=== PATIENT | male | born 1935 | race Caucasian/White ===

== ENCOUNTER 2021-03-21 01:44 | Inpatient (IN) ==
[2021-03-21] MEDS ORDERED: *HR* Heparin 5,000 UNIT/ML VIAL IVP PRN ×2 (04:27)
[2021-03-21] MEDS ORDERED: *HR* Heparin 5,000 UNIT/ML VIAL IVP ONE (04:27)
[2021-03-21] MEDS ORDERED: Heparin 25,000UNIT/250ML 1/2NS 25,000 UNIT/250 ML IV.SOLN IVC SCH (04:30)
[2021-03-21] MEDS ORDERED: Perflutren Lipid Microsphere 1.3 ML in 0.9 % Sodium Chloride 8.7 ML IVP PRN (04:31)
[2021-03-21] MEDS ORDERED: Ondansetron 4 MG/2 ML VIAL IVP PRN (05:26)
[2021-03-21] MEDS ORDERED: Naloxone 0.4 MG/ML INJ IVP PRN (05:26)
[2021-03-21 05:58] LABS: Basophils % 0.3 %; Red Cell Distribution Width 14.6 % (11.5-14.5)
[2021-03-21 06:00] LABS: Basophils # 0.1 K/mcL (0.0-0.2); Hemoglobin 12.6 g/dL (12.9-16.9); Immature Granulocytes % 2.6 % (0-4); Lymphocytes # 0.9 K/mcL (0.6-4.6); Lymphocytes % 3.1 %; Mean Corpuscular HGB Conc 33.2 g/dL (31.6-35.5); Mean Corpuscular Hemoglobin 30.6 pg (28.0-33.3); Mean Corpuscular Volume 92.2 fL (83.0-100.0); Mean Platelet Volume 9.8 fL (9.4-12.4); Monocytes # 5.4 K/mcL (0.0-1.3); Monocytes % 19.8 %; Platelet Count 143 K/mcL (140-400); Red Blood Count 4.12 M/mcL (4.19-5.50); Segmented Neutrophils % 74.2 %; White Blood Count 27.4 K/mcL (4.3-11.1)
[2021-03-21] MEDS ORDERED: Acetaminophen 325 MG TABLET PO PRN (06:00)
[2021-03-21 06:01] LABS: Neutrophils # 20.3 K/mcL (1.6-8.9)
[2021-03-21 06:09] LABS: Heparin anti-factor XA UFH < 0.04 IU/mL (0.30-0.70); INR 1.2; Prothrombin Time 14.2 Seconds (9.4-12.1)
[2021-03-21 06:14] LABS: Platelet Estimate Normal (Normal)
[2021-03-21 06:17] LABS: Albumin 3.1 g/dL (3.5-5.7); Albumin/Globulin Ratio 1.1 (1.1-2.2); Bilirubin,Total 0.3 mg/dL (0.3-1.0); Chol/HDL Ratio 3.7 (0-4.9); Globulin 2.8 g/dL (2.4-3.5); Magnesium 1.9 mg/dL (1.6-2.6); Potassium 3.8 mEq/L (3.5-5.1); Total Protein 5.9 g/dL (6.4-8.9)
[2021-03-21 06:31] LABS: Calcium 8.3 mg/dL (8.6-10.3)
[2021-03-21] MEDS ORDERED: cefTRIAXone 1,000 MG in 0.9 % Sodium Chloride Mini Bag 100 ML IVPB SCH (08:00)
[2021-03-21] MEDS: 0.9 % Sodium Chloride 1,000 ML IVC SCH ×2 (08:46→15:37)
[2021-03-21] MEDS: Aspirin Enteric Coated 81 MG Tablet PO SCH (08:48)
[2021-03-21 12:47] LABS: Estimated Average Glucose 146 mg/dl; Hemoglobin A1C 6.7 %
[2021-03-21] MEDS: *HR* Heparin 5,000 UNIT/ML VIAL SQ SCH ×2 (15:37→21:21)
[2021-03-21] MEDS: Cholecalciferol (D-3) 1,000 UNIT (25MCG) TABLET PO SCH (21:22)
[2021-03-21] MEDS: lisinopriL 20 MG TABLET PO SCH (21:22)
[2021-03-21] MEDS: Ascorbic Acid 500 MG TABLET PO SCH (21:22)
[2021-03-22] MEDS: 0.9 % Sodium Chloride 1,000 ML IVC SCH ×3 (01:32→22:35)
[2021-03-22] MEDS: *HR* Heparin 5,000 UNIT/ML VIAL SQ SCH ×3 (06:04→21:08)
[2021-03-22 06:47] LABS: Hematocrit 34.7 % (37.5-50.1); Hemoglobin 11.2 g/dL (12.9-16.9); Immature Platelets 5.3 % (1.1-6.1); Mean Corpuscular HGB Conc 32.3 g/dL (31.6-35.5); Mean Corpuscular Hemoglobin 29.9 pg (28.0-33.3); Mean Corpuscular Volume 92.5 fL (83.0-100.0); Mean Platelet Volume 10.5 fL (9.4-12.4); Red Blood Count 3.75 M/mcL (4.19-5.50); Red Cell Distribution Width 14.7 % (11.5-14.5); White Blood Count 21.2 K/mcL (4.3-11.1)
[2021-03-22 07:05] LABS: BUN/Creatinine Ratio 30 (6-26); Blood Urea Nitrogen 37 mg/dL (8-23); Calcium 8.1 mg/dL (8.6-10.3); Carbon Dioxide 22 mEq/L (23-29); Chloride 111 mEq/L (98-107); Glucose 127 mg/dL (70-105); Osmolality,Calculated 302 (280-300); Potassium 3.6 mEq/L (3.5-5.1); Sodium 141 mEq/L (136-145); eGFR For African Americans > 60 (> 60); eGFR For Non-African Americans 55 (> 60)
[2021-03-22] MEDS ORDERED: Aspirin Enteric Coated 81 MG Tablet PO SCH (09:00)
[2021-03-22] MEDS ORDERED: cefTRIAXone 1,000 MG in 0.9 % Sodium Chloride Mini Bag 100 ML IVPB SCH (09:00)
[2021-03-22] MEDS ORDERED: NON-FORMULARY MEDICATION 1 EACH EACH (Ubidecarenone [Co Q-10] 100 MG Capsule) PO SCH (09:00)
[2021-03-22] MEDS: Ascorbic Acid 500 MG TABLET PO SCH ×2 (09:18→21:08)
[2021-03-22] MEDS: amLODIPine 5 MG TABLET PO SCH (09:18)
[2021-03-22] MEDS: lisinopriL 20 MG TABLET PO SCH ×2 (09:18→21:09)
[2021-03-22] MEDS: Aspirin Enteric Coated 81 MG Tablet PO SCH (09:18)
[2021-03-22] MEDS: Cholecalciferol (D-3) 1,000 UNIT (25MCG) TABLET PO SCH ×2 (09:18→21:09)
[2021-03-23 04:39] LABS: Red Cell Distribution Width 14.5 % (11.5-14.5)
[2021-03-23 04:40] LABS: Hematocrit 33.1 % (37.5-50.1); Hemoglobin 10.7 g/dL (12.9-16.9); Immature Platelets 4.9 % (1.1-6.1); Mean Corpuscular HGB Conc 32.3 g/dL (31.6-35.5); Mean Corpuscular Hemoglobin 29.9 pg (28.0-33.3); Mean Corpuscular Volume 92.5 fL (83.0-100.0); Mean Platelet Volume 10.8 fL (9.4-12.4); Red Blood Count 3.58 M/mcL (4.19-5.50); White Blood Count 10.8 K/mcL (4.3-11.1)
[2021-03-23 04:58] LABS: BUN/Creatinine Ratio 30 (6-26); Blood Urea Nitrogen 30 mg/dL (8-23); Calcium 7.9 mg/dL (8.6-10.3); Carbon Dioxide 21 mEq/L (23-29); Chloride 112 mEq/L (98-107); Glucose 129 mg/dL (70-105); Osmolality,Calculated 298 (280-300); Potassium 3.6 mEq/L (3.5-5.1); Sodium 140 mEq/L (136-145); eGFR For African Americans > 60 (> 60); eGFR For Non-African Americans > 60 (> 60)
[2021-03-23] MEDS: *HR* Heparin 5,000 UNIT/ML VIAL SQ SCH ×3 (06:06→20:50)
[2021-03-23] MEDS: cefTRIAXone 2,000 MG in 0.9 % Sodium Chloride Mini Bag 100 ML IVPB SCH (09:08)
[2021-03-23] MEDS: Cholecalciferol (D-3) 1,000 UNIT (25MCG) TABLET PO SCH ×2 (09:09→20:49)
[2021-03-23] MEDS: 0.9 % Sodium Chloride 1,000 ML IVC SCH ×2 (09:09→20:49)
[2021-03-23] MEDS: lisinopriL 20 MG TABLET PO SCH ×2 (09:10→20:50)
[2021-03-23] MEDS: Ascorbic Acid 500 MG TABLET PO SCH ×2 (09:10→20:50)
[2021-03-23] MEDS: amLODIPine 5 MG TABLET PO SCH (09:10)
[2021-03-23] MEDS: Aspirin Enteric Coated 81 MG Tablet PO SCH (09:10)
[2021-03-24] MEDS: *HR* Heparin 5,000 UNIT/ML VIAL SQ SCH ×3 (05:54→21:12)
[2021-03-24] MEDS: 0.9 % Sodium Chloride 1,000 ML IVC SCH ×2 (05:54→21:12)
[2021-03-24] MEDS: Cholecalciferol (D-3) 1,000 UNIT (25MCG) TABLET PO SCH ×2 (09:36→21:12)
[2021-03-24] MEDS: cefTRIAXone 2,000 MG in 0.9 % Sodium Chloride Mini Bag 100 ML IVPB SCH (09:36)
[2021-03-24] MEDS: amLODIPine 5 MG TABLET PO SCH (09:36)
[2021-03-24] MEDS: Ascorbic Acid 500 MG TABLET PO SCH ×2 (09:36→21:12)
[2021-03-24] MEDS: Aspirin Enteric Coated 81 MG Tablet PO SCH (09:36)
[2021-03-24] MEDS: lisinopriL 20 MG TABLET PO SCH ×2 (09:36→21:12)
[2021-03-24 10:52] LABS: Red Cell Distribution Width 14.5 % (11.5-14.5)
[2021-03-24 10:54] LABS: Basophils % 0.4 %; Eosinophils # 0.1 K/mcL (0.0-0.6); Eosinophils % 0.6 %; Hematocrit 32.6 % (37.5-50.1); Hemoglobin 10.6 g/dL (12.9-16.9); Immature Granulocytes % 0.9 % (0-4); Immature Platelets 7.1 % (1.1-6.1); Lymphocytes # 0.9 K/mcL (0.6-4.6); Lymphocytes % 11.3 %; Mean Corpuscular HGB Conc 32.5 g/dL (31.6-35.5); Mean Corpuscular Hemoglobin 29.9 pg (28.0-33.3); Mean Corpuscular Volume 92.1 fL (83.0-100.0); Mean Platelet Volume 11.7 fL (9.4-12.4); Monocytes # 1.8 K/mcL (0.0-1.3); Monocytes % 21.9 %; Neutrophils # 5.3 K/mcL (1.6-8.9); Platelet Count 118 K/mcL (140-400); Red Blood Count 3.54 M/mcL (4.19-5.50); Segmented Neutrophils % 64.9 %; White Blood Count 8.1 K/mcL (4.3-11.1)
[2021-03-24 11:37] LABS: Platelet Estimate Normal (Normal)
[2021-03-24 12:36] LABS: BUN/Creatinine Ratio 27 (6-26); Blood Urea Nitrogen 26 mg/dL (8-23); Calcium 8.2 mg/dL (8.6-10.3); Carbon Dioxide 21 mEq/L (23-29); Chloride 114 mEq/L (98-107); Glucose 200 mg/dL (70-105); Osmolality,Calculated 306 (280-300); Potassium 3.3 mEq/L (3.5-5.1); Sodium 143 mEq/L (136-145); eGFR For African Americans > 60 (> 60); eGFR For Non-African Americans > 60 (> 60)
[2021-03-25] MEDS: *HR* Heparin 5,000 UNIT/ML VIAL SQ SCH ×3 (05:46→22:08)
[2021-03-25] MEDS: 0.9 % Sodium Chloride 1,000 ML IVC SCH ×5 (05:47→16:22)
[2021-03-25 06:47] LABS: Hematocrit 35.1 % (37.5-50.1); Hemoglobin 11.7 g/dL (12.9-16.9); Mean Corpuscular HGB Conc 33.3 g/dL (31.6-35.5); Mean Corpuscular Hemoglobin 30.5 pg (28.0-33.3); Mean Corpuscular Volume 91.6 fL (83.0-100.0); Mean Platelet Volume 10.5 fL (9.4-12.4); Platelet Count 130 K/mcL (140-400); Red Blood Count 3.83 M/mcL (4.19-5.50); Red Cell Distribution Width 14.5 % (11.5-14.5); White Blood Count 7.7 K/mcL (4.3-11.1)
[2021-03-25 07:10] LABS: BUN/Creatinine Ratio 24 (6-26); Blood Urea Nitrogen 22 mg/dL (8-23); Calcium 8.3 mg/dL (8.6-10.3); Carbon Dioxide 22 mEq/L (23-29); Chloride 112 mEq/L (98-107); Glucose 122 mg/dL (70-105); Osmolality,Calculated 299 (280-300); Potassium 3.6 mEq/L (3.5-5.1); Sodium 142 mEq/L (136-145); eGFR For African Americans > 60 (> 60); eGFR For Non-African Americans > 60 (> 60)
[2021-03-25 08:48] LABS: Eosinophils # 0.3 K/mcL (0.0-0.6); Lymphocytes # 0.9 K/mcL (0.6-4.6); Monocytes # 1.5 K/mcL (0.0-1.3); Neutrophils # 4.9 K/mcL (1.6-8.9); Platelet Estimate Decreased (Normal)
[2021-03-25] MEDS: Ascorbic Acid 500 MG TABLET PO SCH ×2 (10:07→22:08)
[2021-03-25] MEDS: lisinopriL 20 MG TABLET PO SCH ×2 (10:07→22:07)
[2021-03-25] MEDS: amLODIPine 5 MG TABLET PO SCH (10:07)
[2021-03-25] MEDS: Cholecalciferol (D-3) 1,000 UNIT (25MCG) TABLET PO SCH ×2 (10:07→22:08)
[2021-03-25] MEDS: Aspirin Enteric Coated 81 MG Tablet PO SCH (10:07)
[2021-03-25] MEDS ORDERED: levoFLOXacin 500 MG/100 ML 500 MG/100 ML BAG IVPB ONE (14:00)
[2021-03-26] MEDS ORDERED: Melatonin 3 MG TABLET PO PRN (01:34)
[2021-03-26 01:48] LABS: Basophils % 0.1 %; Eosinophils # 0.1 K/mcL (0.0-0.6); Eosinophils % 1.1 %; Hematocrit 34.3 % (37.5-50.1); Hemoglobin 11.1 g/dL (12.9-16.9); Immature Granulocytes % 1.3 % (0-4); Lymphocytes # 1.2 K/mcL (0.6-4.6); Mean Corpuscular HGB Conc 32.4 g/dL (31.6-35.5); Mean Corpuscular Hemoglobin 30.2 pg (28.0-33.3); Mean Corpuscular Volume 93.2 fL (83.0-100.0); Mean Platelet Volume 10.4 fL (9.4-12.4); Monocytes # 1.9 K/mcL (0.0-1.3); Monocytes % 25.3 %; Platelet Count 188 K/mcL (140-400); Red Blood Count 3.68 M/mcL (4.19-5.50); Red Cell Distribution Width 14.4 % (11.5-14.5); Segmented Neutrophils % 56.2 %; White Blood Count 7.6 K/mcL (4.3-11.1)
[2021-03-26 02:05] LABS: Neutrophils # 4.3 K/mcL (1.6-8.9)
[2021-03-26 02:12] LABS: BUN/Creatinine Ratio 21 (6-26); Blood Urea Nitrogen 18 mg/dL (8-23); Calcium 8.2 mg/dL (8.6-10.3); Carbon Dioxide 21 mEq/L (23-29); Chloride 113 mEq/L (98-107); Glucose 122 mg/dL (70-105); Osmolality,Calculated 299 (280-300); Potassium 3.5 mEq/L (3.5-5.1); Sodium 143 mEq/L (136-145); eGFR For African Americans > 60 (> 60); eGFR For Non-African Americans > 60 (> 60)
[2021-03-26] MEDS: *HR* Heparin 5,000 UNIT/ML VIAL SQ SCH ×2 (05:49→13:58)
[2021-03-26] MEDS: 0.9 % Sodium Chloride 1,000 ML IVC SCH (05:49)
[2021-03-26] MEDS: amLODIPine 5 MG TABLET PO SCH (08:29)
[2021-03-26] MEDS: lisinopriL 20 MG TABLET PO SCH (08:29)
[2021-03-26] MEDS: Cholecalciferol (D-3) 1,000 UNIT (25MCG) TABLET PO SCH ×2 (08:29→22:01)
[2021-03-26] MEDS: Aspirin Enteric Coated 81 MG Tablet PO SCH (08:29)
[2021-03-26] MEDS: Ascorbic Acid 500 MG TABLET PO SCH ×2 (08:29→22:00)
[2021-03-26] MEDS: levoFLOXacin 750 MG TABLET PO SCH (10:31)
[2021-03-26] MEDS ORDERED: Isovue-370 500 ML BOTTLE IVP ONE (13:07)
[2021-03-26] MEDS ORDERED: hydrOXYzine pamoate 25 MG CAPSULE PO ONE (13:10)
[2021-03-26] MEDS ORDERED: levoFLOXacin 750 MG/150 ML 750 MG/150 ML BAG IVPB SCH (14:00)
[2021-03-26] MEDS ORDERED: *HR* Heparin 5,000 UNIT/ML VIAL IVP PRN ×2 (16:53)
[2021-03-26] MEDS ORDERED: *HR* Heparin 5,000 UNIT/ML VIAL IVP ONE (16:53)
[2021-03-26 18:27] LABS: Hematocrit 34.4 % (37.5-50.1); Hemoglobin 11.3 g/dL (12.9-16.9); Mean Corpuscular HGB Conc 32.8 g/dL (31.6-35.5); Mean Corpuscular Hemoglobin 30.2 pg (28.0-33.3); Mean Platelet Volume 10.1 fL (9.4-12.4); Platelet Count 211 K/mcL (140-400); Red Blood Count 3.74 M/mcL (4.19-5.50); Red Cell Distribution Width 14.4 % (11.5-14.5); White Blood Count 8.1 K/mcL (4.3-11.1)
[2021-03-26 18:36] LABS: INR 1.2; Prothrombin Time 13.3 Seconds (9.4-12.1)
[2021-03-26 18:39] LABS: Heparin anti-factor XA UFH < 0.04 IU/mL (0.30-0.70)
[2021-03-26] MEDS: Heparin 25,000UNIT/250ML 1/2NS 25,000 UNIT/250 ML IV.SOLN IVC SCH (18:49)
[2021-03-27 01:24] LABS: Basophils % 0.1 %; Eosinophils # 0.1 K/mcL (0.0-0.6); Eosinophils % 1.4 %; Hematocrit 30.9 % (37.5-50.1); Hemoglobin 10.3 g/dL (12.9-16.9); Immature Granulocytes % 1.1 % (0-4); Lymphocytes # 1.5 K/mcL (0.6-4.6); Lymphocytes % 19.8 %; Mean Corpuscular HGB Conc 33.3 g/dL (31.6-35.5); Mean Corpuscular Hemoglobin 30.7 pg (28.0-33.3); Monocytes # 1.6 K/mcL (0.0-1.3); Neutrophils # 4.1 K/mcL (1.6-8.9); Platelet Count 184 K/mcL (140-400); Red Blood Count 3.36 M/mcL (4.19-5.50); Red Cell Distribution Width 14.2 % (11.5-14.5); Segmented Neutrophils % 55.6 %; White Blood Count 7.3 K/mcL (4.3-11.1)
[2021-03-27 01:46] LABS: BUN/Creatinine Ratio 21 (6-26); Blood Urea Nitrogen 18 mg/dL (8-23); Calcium 8.1 mg/dL (8.6-10.3); Carbon Dioxide 22 mEq/L (23-29); Chloride 110 mEq/L (98-107); Glucose 124 mg/dL (70-105); Osmolality,Calculated 295 (280-300); Potassium 3.4 mEq/L (3.5-5.1); Sodium 141 mEq/L (136-145); eGFR For African Americans > 60 (> 60); eGFR For Non-African Americans > 60 (> 60)
[2021-03-27 01:47] LABS: Anisocytosis 1+ (Not Present); Platelet Estimate Normal (Normal)
[2021-03-27] MEDS: levoFLOXacin 750 MG TABLET PO SCH (09:24)
[2021-03-27] MEDS: Aspirin Enteric Coated 81 MG Tablet PO SCH (09:24)
[2021-03-27] MEDS: Cholecalciferol (D-3) 1,000 UNIT (25MCG) TABLET PO SCH ×2 (09:24→19:50)
[2021-03-27] MEDS: Ascorbic Acid 500 MG TABLET PO SCH ×2 (09:24→19:51)
[2021-03-27] MEDS: lisinopriL 20 MG TABLET PO SCH (09:24)
[2021-03-27] MEDS: Heparin 25,000UNIT/250ML 1/2NS 25,000 UNIT/250 ML IV.SOLN IVC SCH (09:25)
[2021-03-27] MEDS: amLODIPine 5 MG TABLET PO SCH (09:25)
[2021-03-27 11:31] LABS: INR 1.2; Prothrombin Time 13.6 Seconds (9.4-12.1)
[2021-03-27] MEDS ORDERED: Warfarin perPT PO PRN (18:00)
[2021-03-27] MEDS ORDERED: *HR* Warfarin 2 MG TABLET PO ONE ×2 (18:00)
[2021-03-28 02:15] LABS: Basophils % 0.3 %; Eosinophils # 0.1 K/mcL (0.0-0.6); Eosinophils % 1.8 %; Hemoglobin 9.4 g/dL (12.9-16.9); Immature Granulocytes % 1.1 % (0-4); Lymphocytes # 1.5 K/mcL (0.6-4.6); Lymphocytes % 20.8 %; Mean Corpuscular HGB Conc 32.4 g/dL (31.6-35.5); Mean Corpuscular Hemoglobin 30.2 pg (28.0-33.3); Mean Corpuscular Volume 93.2 fL (83.0-100.0); Monocytes # 1.4 K/mcL (0.0-1.3); Monocytes % 19.6 %; Platelet Count 215 K/mcL (140-400); Red Blood Count 3.11 M/mcL (4.19-5.50); Red Cell Distribution Width 14.4 % (11.5-14.5); Segmented Neutrophils % 56.4 %
[2021-03-28 02:22] LABS: INR 1.2; Prothrombin Time 13.3 Seconds (9.4-12.1)
[2021-03-28 02:31] LABS: BUN/Creatinine Ratio 22 (6-26); Blood Urea Nitrogen 18 mg/dL (8-23); Calcium 8.2 mg/dL (8.6-10.3); Carbon Dioxide 25 mEq/L (23-29); Chloride 110 mEq/L (98-107); Glucose 100 mg/dL (70-105); Osmolality,Calculated 294 (280-300); Potassium 3.5 mEq/L (3.5-5.1); Sodium 141 mEq/L (136-145); eGFR For African Americans > 60 (> 60); eGFR For Non-African Americans > 60 (> 60)
[2021-03-28 02:39] LABS: Platelet Estimate Normal (Normal)
[2021-03-28 02:43] LABS: Anisocytosis 1+ (Not Present)
[2021-03-28 07:28] VITALS: BP 176/73; PULSE 86; TEMP 98.4; O2SAT 96
[2021-03-28] MEDS: amLODIPine 5 MG TABLET PO SCH (08:21)
[2021-03-28] MEDS: lisinopriL 20 MG TABLET PO SCH (08:22)
[2021-03-28] MEDS: levoFLOXacin 750 MG TABLET PO SCH (08:22)
[2021-03-28] MEDS: Cholecalciferol (D-3) 1,000 UNIT (25MCG) TABLET PO SCH (08:22)
[2021-03-28] MEDS: Aspirin Enteric Coated 81 MG Tablet PO SCH (08:22)
[2021-03-28] MEDS: Ascorbic Acid 500 MG TABLET PO SCH (08:23)
[2021-03-28 11:05] LABS: Influenza A PCR Negative (Negative); Influenza B PCR Negative (Negative); Resp. Syncytial Virus PCR Negative (Negative)
[2021-03-28 11:07] LABS: SARS-CoV-2 by PCR (In House) Negative (Negative)
[2021-03-28] MEDS ORDERED: *HR* Warfarin 2.5 MG TABLET PO ONE (18:00)
== END 2021-03-28 15:10 | disposition other institution (70) | DRG 698 ==
LOC: 2ANU → SUATTDRO 03:43
PROVIDERS: ADMIT Student in an Organized Health Care Education/Training Program; ATTEND Internal Medicine

== ENCOUNTER 2022-01-03 13:36 | Inpatient (IN) ==
[2022-01-03] MEDS ORDERED: MOM Conc 10 ML UD.LIQ PO PRN (16:43)
[2022-01-03] MEDS ORDERED: Mag Hydrox/Al Hydrox/Simeth 30 ML UDC PO PRN (16:43)
[2022-01-03] MEDS ORDERED: Ondansetron ODT 4 MG TAB.RAPDIS SL PRN (16:43)
[2022-01-03] MEDS ORDERED: Naloxone 0.4 MG/ML INJ IVP PRN (16:43)
[2022-01-03] MEDS ORDERED: Perflutren Lipid Microsphere 1.3 ML in 0.9 % Sodium Chloride 8.7 ML IVP PRN (16:44)
[2022-01-03] MEDS ORDERED: *HR* Heparin 5,000 UNIT/ML VIAL IVP ONE (17:11)
[2022-01-03] MEDS ORDERED: *HR* Heparin 5,000 UNIT/ML VIAL IVP PRN ×2 (17:11)
[2022-01-03] MEDS ORDERED: Heparin 25,000UNIT/250ML 1/2NS 25,000 UNIT/250 ML IV.SOLN IVC SCH ×2 (17:15)
[2022-01-03 17:55] LABS: Hematocrit 39.4 % (37.5-50.1); Mean Corpuscular Hemoglobin 30.4 pg (28.0-33.3); Mean Corpuscular Volume 92.1 fL (83.0-100.0); Mean Platelet Volume 9.7 fL (9.4-12.4); Platelet Count 194 K/mcL (140-400); Red Blood Count 4.28 M/mcL (4.19-5.50); Red Cell Distribution Width 14.4 % (11.5-14.5); White Blood Count 7.4 K/mcL (4.3-11.1)
[2022-01-03 18:02] LABS: Heparin anti-factor XA UFH 0.52 IU/mL (0.30-0.70); INR 1.1; Prothrombin Time 12.3 Seconds (9.4-12.1)
[2022-01-03] MEDS ORDERED: Nitroglycerin 0.4 MG TAB.SUBL SL PRN (18:52)
[2022-01-03] MEDS ORDERED: Apixaban 5 MG TABLET PO SCH (21:00)
[2022-01-04 01:10] LABS: Basophils % 0.4 %; Eosinophils # 0.1 K/mcL (0.0-0.6); Eosinophils % 1.4 %; Hematocrit 36.1 % (37.5-50.1); Hemoglobin 11.7 g/dL (12.9-16.9); Immature Granulocytes % 0.4 % (0-4); Lymphocytes # 2.4 K/mcL (0.6-4.6); Lymphocytes % 33.2 %; Mean Corpuscular HGB Conc 32.4 g/dL (31.6-35.5); Mean Corpuscular Hemoglobin 30.2 pg (28.0-33.3); Mean Platelet Volume 9.7 fL (9.4-12.4); Monocytes # 1.9 K/mcL (0.0-1.3); Neutrophils # 2.7 K/mcL (1.6-8.9); Platelet Count 166 K/mcL (140-400); Red Blood Count 3.88 M/mcL (4.19-5.50); Red Cell Distribution Width 14.5 % (11.5-14.5); Segmented Neutrophils % 37.6 %; White Blood Count 7.1 K/mcL (4.3-11.1)
[2022-01-04 01:29] LABS: BUN/Creatinine Ratio 19 (6-26); Blood Urea Nitrogen 24 mg/dL (8-23); Calcium 9.2 mg/dL (8.6-10.3); Carbon Dioxide 24 mEq/L (23-29); Chloride 106 mEq/L (98-107); Glucose 86 mg/dL (70-105); Osmolality,Calculated 291 (280-300); Potassium 3.9 mEq/L (3.5-5.1); Sodium 139 mEq/L (136-145); eGFR For African Americans > 60 (> 60); eGFR For Non-African Americans 54 (> 60)
[2022-01-04] MEDS ORDERED: Heparin 1,000 UNITS/500 mL 500 ML ONE ×2 (10:53→12:12)
[2022-01-04] MEDS ORDERED: *HR* Midazolam HCl 2 MG/2 ML VIAL ONE (10:53)
[2022-01-04] MEDS ORDERED: 0.9 % Sodium Chloride 2,000 ML ONE (10:53)
[2022-01-04] MEDS ORDERED: *HR* FentaNYL (PF) 100 MCG/2 ML VIAL ONE (10:53)
[2022-01-04] MEDS ORDERED: *HR* Heparin 10,000 UNIT/10 ML VIAL ONE (10:53)
[2022-01-04] MEDS ORDERED: Iopamidol - 370 200 ML INFUS..BTL ONE ×2 (10:54→12:39)
[2022-01-04] MEDS ORDERED: Nitroglycerin 1,000 MCG/5 ML VIAL IV ONE (10:54)
[2022-01-04] MEDS ORDERED: Tirofiban 12.5 MG/250ML 12.5 MG/250 ML BAG ONE (11:53)
[2022-01-04] MEDS ORDERED: *HR* Ticagrelor 90 MG TABLET ONE (12:56)
[2022-01-04] MEDS ORDERED: Nitroglycerin Spray 4.9 GM BOTTLE ONE (13:06)
[2022-01-04] MEDS ORDERED: *HR* Labetalol 100 MG/20 ML MDV ONE (13:07)
[2022-01-04] MEDS ORDERED: *HR* Phenylephrine 10 MG/ML VIAL ONE (13:44)
[2022-01-04] MEDS ORDERED: Tirofiban 12.5 MG/250ML 12.5 MG/250 ML BAG IVC SCH (13:45)
[2022-01-04] MEDS: Aspirin Enteric Coated 81 MG Tablet PO SCH (13:57)
[2022-01-04] MEDS: Furosemide 40 MG/4 ML VIAL IVP SCH (14:07)
[2022-01-04] MEDS: Melatonin 3 MG TABLET PO PRN (20:39)
[2022-01-05 01:47] LABS: Hematocrit 32.8 % (37.5-50.1); Hemoglobin 10.6 g/dL (12.9-16.9); Mean Corpuscular HGB Conc 32.3 g/dL (31.6-35.5); Mean Corpuscular Volume 92.9 fL (83.0-100.0); Mean Platelet Volume 9.7 fL (9.4-12.4); Neutrophils # 4.3 K/mcL (1.6-8.9); Platelet Count 173 K/mcL (140-400); Red Blood Count 3.53 M/mcL (4.19-5.50); Red Cell Distribution Width 14.7 % (11.5-14.5); White Blood Count 8.6 K/mcL (4.3-11.1)
[2022-01-05 02:02] LABS: BUN/Creatinine Ratio 18 (6-26); Blood Urea Nitrogen 23 mg/dL (8-23); Calcium 9.1 mg/dL (8.6-10.3); Carbon Dioxide 26 mEq/L (23-29); Chloride 108 mEq/L (98-107); Glucose 96 mg/dL (70-105); Osmolality,Calculated 294 (280-300); Potassium 4.2 mEq/L (3.5-5.1); Sodium 140 mEq/L (136-145); eGFR For African Americans > 60 (> 60); eGFR For Non-African Americans 54 (> 60)
[2022-01-05 02:14] LABS: Basophils # 0.2 K/mcL (0.0-0.2); Eosinophils # 0.3 K/mcL (0.0-0.6); Lymphocytes # 2.8 K/mcL (0.6-4.6)
[2022-01-05 02:15] LABS: Platelet Estimate Normal (Normal)
[2022-01-05] MEDS ORDERED: Perflutren Lipid Microsphere 1.3 ML in 0.9 % Sodium Chloride 8.7 ML IVP PRN (08:11)
[2022-01-05] MEDS: Furosemide 40 MG/4 ML VIAL IVP SCH (08:35)
[2022-01-05] MEDS: *HR* Ticagrelor 90 MG TABLET PO SCH ×2 (08:35→21:38)
[2022-01-05] MEDS: Aspirin Enteric Coated 81 MG Tablet PO SCH (08:35)
[2022-01-05] MEDS: Apixaban 5 MG TABLET PO SCH ×2 (10:06→21:38)
[2022-01-05] MEDS: Melatonin 3 MG TABLET PO PRN (21:38)
[2022-01-06 07:15] VITALS: BP 136/72; PULSE 66; TEMP 98.2; O2SAT 96
[2022-01-06] MEDS: Aspirin Enteric Coated 81 MG Tablet PO SCH (08:25)
[2022-01-06] MEDS: Furosemide 40 MG/4 ML VIAL IVP SCH (08:25)
[2022-01-06] MEDS: *HR* Ticagrelor 90 MG TABLET PO SCH (08:26)
[2022-01-06] MEDS: Apixaban 5 MG TABLET PO SCH (08:26)
== END 2022-01-06 11:32 | disposition home or self-care (01) | DRG 246 ==
LOC: 3ANU → SUATTDRO 15:18 → 3BNU 01-04 14:05
PROVIDERS: ADMIT Internal Medicine; ATTEND Registered Nurse

== ENCOUNTER 2022-02-26 11:24 | Inpatient (IN) ==
[2022-02-26] MEDS ORDERED: 0.9 % Sodium Chloride 500 ML IVC ONE (12:08)
[2022-02-26 12:28] LABS: Basophils % 0.2 %; Eosinophils # 0.1 K/mcL (0.0-0.6); Eosinophils % 0.4 %; Hematocrit 35.8 % (37.5-50.1); Hemoglobin 11.6 g/dL (12.9-16.9); Immature Granulocytes % 0.8 % (0-4); Lymphocytes # 1.3 K/mcL (0.6-4.6); Mean Corpuscular HGB Conc 32.4 g/dL (31.6-35.5); Mean Corpuscular Hemoglobin 30.2 pg (28.0-33.3); Mean Corpuscular Volume 93.2 fL (83.0-100.0); Monocytes # 3.9 K/mcL (0.0-1.3); Monocytes % 23.7 %; Platelet Count 105 K/mcL (140-400); Red Blood Count 3.84 M/mcL (4.19-5.50); Segmented Neutrophils % 66.9 %; White Blood Count 16.5 K/mcL (4.3-11.1)
[2022-02-26 13:08] LABS: Calcium 9.1 mg/dL (8.6-10.3); Potassium 4.4 mEq/L (3.5-5.1)
[2022-02-26 13:47] LABS: Platelet Estimate Slight Decrease (Normal)
[2022-02-26 13:58] LABS: Bacteria,Urine Few per hpf (None-Few); Bilirubin,Urine Negative (Negative); Blood,Urine Large (Negative); Budding Yeast,Urine Few per hpf (None Seen); Clarity,Urine Turbid (Clear); Color,Urine Yellow (Yellow); Glucose,Urine (UA) Normal (Normal); Hyaline Casts,Urine Moderate per lpf (None Seen); Ketones,Urine Negative (Negative); Leukocyte Esterase,Urine Large (Negative); Mucus,Urine Few per lpf (None-Few); Nitrite,Urine Negative (Negative); PH,Urine 5.5 pH Units (5.0-8.0); Protein,Urine 30 mg/dL (Neg-Trace); RBC,Urine 50-100 per hpf (0-3); Specific Gravity,Urine 1.015 (1.010-1.025); Squamous Epithelial Cell,Urine Few per hpf (None-Few); Urobilinogen,Urine Normal (Normal); WBC,Urine TNTC per hpf (0-3)
[2022-02-26] MEDS ORDERED: cefTRIAXone 1,000 MG in 0.9 % Sodium Chloride 10 ML IVP ONE (14:18)
[2022-02-26] MEDS ORDERED: Ondansetron 4 MG/2 ML VIAL IVP PRN (14:31)
[2022-02-26] MEDS ORDERED: Naloxone 0.4 MG/ML INJ IVP PRN (14:31)
[2022-02-26] MEDS ORDERED: Acetaminophen 325 MG TABLET PO PRN (14:31)
[2022-02-26] MEDS: Ringers Solution, Lactated 1,000 ML IVC SCH (15:25)
[2022-02-26] MEDS: Ampicillin/Sulbactam 1,500 MG in 0.9 % Sodium Chloride Mini Bag 100 ML IVPB SCH (18:13)
[2022-02-26] MEDS: Apixaban 5 MG TABLET PO SCH (19:43)
[2022-02-26] MEDS: *HR* Ticagrelor 90 MG TABLET PO SCH (19:43)
[2022-02-27 04:04] LABS: Basophils % 0.3 %; Eosinophils # 0.1 K/mcL (0.0-0.6); Eosinophils % 1.2 %; Hematocrit 32.3 % (37.5-50.1); Hemoglobin 10.3 g/dL (12.9-16.9); Immature Granulocytes % 0.6 % (0-4); Lymphocytes # 1.4 K/mcL (0.6-4.6); Lymphocytes % 13.8 %; Mean Corpuscular HGB Conc 31.9 g/dL (31.6-35.5); Mean Corpuscular Hemoglobin 29.8 pg (28.0-33.3); Mean Corpuscular Volume 93.4 fL (83.0-100.0); Mean Platelet Volume 10.7 fL (9.4-12.4); Monocytes # 2.7 K/mcL (0.0-1.3); Neutrophils # 5.9 K/mcL (1.6-8.9); Platelet Count 108 K/mcL (140-400); Red Blood Count 3.46 M/mcL (4.19-5.50); Red Cell Distribution Width 13.9 % (11.5-14.5); Segmented Neutrophils % 58.1 %; White Blood Count 10.2 K/mcL (4.3-11.1)
[2022-02-27 04:21] LABS: Calcium 8.6 mg/dL (8.6-10.3); Potassium 4.1 mEq/L (3.5-5.1)
[2022-02-27 05:26] LABS: Platelet Estimate Slight Decrease (Normal)
[2022-02-27] MEDS: Ampicillin/Sulbactam 1,500 MG in 0.9 % Sodium Chloride Mini Bag 100 ML IVPB SCH ×2 (06:12→17:28)
[2022-02-27] MEDS: Apixaban 5 MG TABLET PO SCH ×2 (07:30→22:26)
[2022-02-27] MEDS: *HR* Ticagrelor 90 MG TABLET PO SCH ×2 (07:30→22:26)
[2022-02-27] MEDS ORDERED: cefTRIAXone 1,000 MG in Water for inj. (sterile) 10 ML IVP SCH (09:00)
[2022-02-27] MEDS: Ringers Solution, Lactated 1,000 ML IVC SCH (09:32)
[2022-02-27] MEDS ORDERED: Fluconazole 100 MG TABLET PO ONE (16:03)
[2022-02-28 02:58] LABS: Calcium 8.6 mg/dL (8.6-10.3); Potassium 4.4 mEq/L (3.5-5.1)
[2022-02-28 03:01] LABS: Eosinophils # 0.1 K/mcL (0.0-0.6); Hematocrit 31.7 % (37.5-50.1); Hemoglobin 10.2 g/dL (12.9-16.9); Mean Corpuscular HGB Conc 32.2 g/dL (31.6-35.5); Mean Corpuscular Hemoglobin 29.8 pg (28.0-33.3); Mean Corpuscular Volume 92.7 fL (83.0-100.0); Platelet Count 115 K/mcL (140-400); Red Blood Count 3.42 M/mcL (4.19-5.50); Red Cell Distribution Width 13.4 % (11.5-14.5); White Blood Count 5.7 K/mcL (4.3-11.1)
[2022-02-28 04:43] LABS: Lymphocytes # 1.3 K/mcL (0.6-4.6); Monocytes # 1.6 K/mcL (0.0-1.3); Neutrophils # 2.7 K/mcL (1.6-8.9)
[2022-02-28 04:46] LABS: Platelet Estimate Slight Decrease (Normal)
[2022-02-28 04:48] VITALS: O2SAT 97
[2022-02-28] MEDS: Ampicillin/Sulbactam 1,500 MG in 0.9 % Sodium Chloride Mini Bag 100 ML IVPB SCH (04:50)
[2022-02-28] MEDS: *HR* Ticagrelor 90 MG TABLET PO SCH (07:56)
[2022-02-28] MEDS: Apixaban 5 MG TABLET PO SCH (07:57)
[2022-02-28] MEDS ORDERED: Fluconazole 100 MG TABLET PO SCH ×2 (09:00→16:00)
[2022-02-28] MEDS ORDERED: amLODIPine 5 MG TABLET PO SCH (09:00)
[2022-02-28 11:03] VITALS: BP 125/69; PULSE 63; TEMP 98
== END 2022-02-28 14:21 | disposition home or self-care (01) | DRG 683 ==
LOC: 2ANU 11:24 → EMEROOARM 11:24 → SUATTDRO 16:29 → 2ANU 18:00
PROVIDERS: ADMIT Internal Medicine; ATTEND Internal Medicine